=== PATIENT | female | born 2000 | race Hispanic/Latino ===

== ENCOUNTER 2021-08-08 12:16 | Outpatient (CLI) | payer MEDICAID ==
[2021-08-10 00:05] LABS: SARS-CoV-2 PCR by NAA Not Detected (NotDetected)
== END 2021-08-08 12:17 | disposition home or self-care (01) ==
LOC: CSHLAB 12:16
PROVIDERS: ATTEND Family Medicine
DX: Z20.822 Contact with and (suspected) exposure to COVID-19 (principal)
CPT/HCPCS: U0003; U0005

== ENCOUNTER 2021-08-12 18:00 | Inpatient (IN) | payer MEDICAID, OTHER ==
[~2021-08-12 18:00] MED LIST: Bupivacaine/Epinephrine 0.25% 30 ML VIAL ONE
[2021-08-12 18:40] VITALS: BMI 40.8
[2021-08-12] MEDS ORDERED: Carboprost 250 MCG/ML AMP IM PRN (18:41)
[2021-08-12] MEDS ORDERED: Lidocaine 1% (PF) 30 ML VIAL SC PRN (18:41)
[2021-08-12] MEDS ORDERED: hydrALAZINE 20 MG/ML VIAL SLOW IVP PRN (18:41)
[2021-08-12] MEDS ORDERED: Promethazine HCl 25 MG/ML VIAL IM PRN (18:41)
[2021-08-12] MEDS ORDERED: Misoprostol 200 MCG TAB PR PRN (18:41)
[2021-08-12] MEDS ORDERED: Ibuprofen 800 MG TAB PO PRN (18:41)
[2021-08-12] MEDS ORDERED: Ondansetron PF 4 MG/2 ML Vial IVP PRN (18:41)
[2021-08-12] MEDS ORDERED: NS w/ Oxytocin 30 units 500 ML IV SCH ×2 (18:45)
[2021-08-12] MEDS: Lactated Ringer's 1,000 ML IV SCH (19:28)
[2021-08-12] MEDS: Misoprostol 100 MCG TAB VAG SCH (20:31)
[2021-08-12 20:53] LABS: Hemoglobin 12.2 g/dL (12.0-15.5); Mean Corpuscular HGB CONC 32.4 g/dL (32.0-36.0); Mean Corpuscular Hemoglobin 26.2 pg (27.0-33.0); Mean Corpuscular Volume 80.9 fl (81.6-98.3); Mean Platelet Volume 10.7 fl (7.4-10.4); Platelet Count 239 10x3/uL (150-450); RBC Distribution Width 14.5 % (11.5-14.5); Red Blood Cell (RBC) Count 4.65 10x6/uL (3.90-5.03); White Blood Cell (WBC) Count 6.8 10x3/uL (3.5-10.5)
[2021-08-12 21:25] LABS: Hep B Surf Ag Non-Reactive S/CO (NonReactive); Syphilis Antibody Nonreactive (Nonreactive); Syphilis Antibody Index 0.03 S/CO (<1.00 Non-Reactive)
[2021-08-12 21:26] LABS: HBSAg Index 0.21 S/CO (0-0.99)
[2021-08-13] MEDS: Misoprostol 100 MCG TAB VAG SCH (02:38)
[2021-08-13] MEDS: Lactated Ringer's 1,000 ML IV SCH (07:53)
[2021-08-13] MEDS ORDERED: Fentanyl 2 mcg/Bup 0.1% Cadd 100 ML ONE (20:50)
[2021-08-13] MEDS ORDERED: Promethazine HCl 25 MG/ML VIAL IM PRN (21:50)
[2021-08-13] MEDS ORDERED: diphenhydrAMINE 50 MG/ML VIAL IVP PRN (21:50)
[2021-08-13] MEDS ORDERED: Ondansetron PF 4 MG/2 ML Vial IVP PRN (21:50)
[2021-08-13] MEDS ORDERED: Acetaminophen 325 MG TAB PO PRN (21:50)
[2021-08-13] MEDS ORDERED: Naloxone HCl 0.4 mg/ml Vial IVP PRN ×2 (21:50)
[2021-08-13] MEDS ORDERED: ePHEDrine Sulfate 50 MG/10 ML VIAL SLOW IVP PRN (21:50)
[2021-08-13] MEDS ORDERED: Hydrocerin (Eucerin) Cream 120 gm Jar TOP PRN (21:50)
[2021-08-13] MEDS ORDERED: Lactated Ringer's 500 ML IV PRN (21:50)
[2021-08-13] MEDS ORDERED: Communication Order-Pharmacy FS SCH (22:00)
[2021-08-13] MEDS ORDERED: Fentanyl 2 mcg/Bupivacaine 0.1% Cassette 100 ML EPIDURAL SCH (22:00)
[2021-08-14] MEDS ORDERED: Hepatitis B Vaccine 10 MCG/0.5 ML SYR ONE (01:51)
[2021-08-14] MEDS ORDERED: Phytonadione Neonatal 1 MG/0.5 ML AMP ONE (01:51)
[2021-08-14] MEDS ORDERED: Erythromycin Base 0.5% Oint 1 GM TUBE ONE (01:51)
[2021-08-14] MEDS ORDERED: Dextrose 30 ML TUBE ONE (05:22)
[2021-08-14] MEDS ORDERED: Methylergonovine 0.2 MG TAB PO PRN (06:15)
[2021-08-14] MEDS ORDERED: Bisacodyl 10 MG SUPP PR PRN (06:15)
[2021-08-14] MEDS ORDERED: Lanolin Ointment 7 GM TUBE TOP PRN (06:15)
[2021-08-14] MEDS ORDERED: Methylergonovine 0.2 MG/ML VIAL IM PRN (06:15)
[2021-08-14] MEDS ORDERED: NS / Oxytocin 40 units/1000ml 1,000 ML IV SCH (06:15)
[2021-08-14] MEDS ORDERED: Ondansetron PF 4 MG/2 ML Vial IVP PRN (06:15)
[2021-08-14] MEDS ORDERED: Milk Of Magnesia 30 ML UDCUP PO PRN (06:15)
[2021-08-14] MEDS ORDERED: Misoprostol 200 MCG TAB VAG PRN (06:22)
[2021-08-14] MEDS: Misoprostol 100 MCG TAB VAG SCH ×6 (09:08→18:30)
[2021-08-14] MEDS: Lactated Ringer's 1,000 ML IV SCH ×4 (09:09→18:30)
[2021-08-14] MEDS: hydrALAZINE 20 MG/ML VIAL SLOW IVP SCH (09:11)
[2021-08-14] MEDS: Docusate Calcium (SURFAK) 240 MG CAP PO SCH ×2 (09:50→21:20)
[2021-08-14] MEDS: Prenatal Vitamin 1 TAB PO SCH (09:50)
[2021-08-14] MEDS: Ferrous Sulfate 325 MG TAB PO SCH ×2 (09:51→16:55)
[2021-08-14] MEDS ORDERED: Ibuprofen 800 MG TAB PO SCH (14:00)
[2021-08-14] MEDS: Ibuprofen 800 MG TAB PO SCH ×2 (15:16→21:21)
[2021-08-15] MEDS: Ibuprofen 800 MG TAB PO SCH ×2 (05:33→14:20)
[2021-08-15] MEDS: Misoprostol 100 MCG TAB VAG SCH ×3 (05:53→09:20)
[2021-08-15] MEDS: Lactated Ringer's 1,000 ML IV SCH ×2 (05:54→10:56)
[2021-08-15] MEDS ORDERED: TETANUS, DIPHTHERIA TOX,ADULT (TDVAX) 0.5 ML VIAL IM ONE (06:30)
[2021-08-15] MEDS: Ferrous Sulfate 325 MG TAB PO SCH (08:02)
[2021-08-15] MEDS: hydrALAZINE 20 MG/ML VIAL SLOW IVP SCH (09:20)
[2021-08-15] MEDS: Docusate Calcium (SURFAK) 240 MG CAP PO SCH (09:30)
[2021-08-15] MEDS: Prenatal Vitamin 1 TAB PO SCH (09:30)
[2021-08-15 12:42] VITALS: BP 110/60; TEMP 98
== END 2021-08-15 14:50 | disposition home or self-care (01) | DRG 807 ==
LOC: CSHLD 18:03 → CSHPED 08-14 06:06
PROVIDERS: ADMIT Student in an Organized Health Care Education/Training Program; ATTEND Student in an Organized Health Care Education/Training Program
PROC: 3E033VJ Introduction of Other Hormone into Peripheral Vein, Percutaneous Approach (ICD-10-PCS; 2021-08-13)
PROC: 10H07YZ Insertion of Other Device into Products of Conception, Via Natural or Artificial Opening (ICD-10-PCS; 2021-08-13)
PROC: 10E0XZZ Delivery of Products of Conception, External Approach (ICD-10-PCS; principal; 2021-08-14)
PROC: 3E0P7VZ Introduction of Hormone into Female Reproductive, Via Natural or Artificial Opening (ICD-10-PCS; 2021-08-14)
DX: O10.92 Unspecified pre-existing hypertension complicating childbirth (principal); Z37.0 Single live birth; Z3A.39 39 weeks gestation of pregnancy; O99.214 Obesity complicating childbirth; Z86.16 Personal history of COVID-19; O76 Abnormality in fetal heart rate and rhythm complicating labor and delivery
CPT/HCPCS: 36415; 51702; 85027; 86780; 86850; 86900; 86901; 87340; J2590; J7120